=== PATIENT | male | born 1940 | race Caucasian/White ===

== ENCOUNTER 2017-01-29 18:35 | Emergency (ER) | payer OTHER ==
[2017-01-29 18:26] LABS: URINE SOURCE CLEAN CATCH
[~2017-01-29 18:35] MED LIST: ACETAMINOPHEN325 MG PO; ALTACE PO; ASPIRIN PO; FLAGYL PO; FLOMAX0.4 MG PO; HYDROCODON-ACE1 EAC7 PO; LEVAQUIN PO; LIPITOR PO; LORTAB 7.5-5001 TAB PO; MACRODANTIN PO; PRAVASTATIN PO; PREVACID PO; XARELTO15 MG PO
[2017-01-29 18:46] LABS: URINE APPEARANCE CLOUDY; URINE COLOR RED; URINE LEUKOCYTE ESTERASE 1+ (NEG); URINE NITRATE POS (NEG); URINE PROTEIN 2+ (NEG); URINE SPECIFIC GRAVITY 1.005 (1.003-1.035)
[2017-01-29 18:47] LABS: MICRO INDICATED? YES; URINE BILIRUBIN NEG (NEG); URINE BLOOD 3+ (NEG); URINE GLUCOSE NEG (NORM); URINE KETONE 1+ (NEG); URINE UROBILINOGEN NORM (NORM)
[2017-01-29 18:50] LABS: CULTURE INDICATED? YES; URINE BACTERIA 1+ (NEG); URINE MUCUS PRESENT; URINE RBC 200-300 /[HPF] (0-2); URINE SQUAMOUS EPITHELIAL CELL FEW /[HPF]
[2017-01-29 19:39] LABS: BASOPHIL% 0.5 % (0-2.5); DIFF IND NO; EOSINOPHIL# 0.1 X10e3 (0-0.7); EOSINOPHIL% 2.6 % (0.0-7.0); HEMATOCRIT 46.7 % (38.0-50.0); HEMOGLOBIN 15.8 gm/dL (13.0-16.0); LYMPHOCYTE# 1.4 X10e3 (1.0-3.5); LYMPHOCYTE% 29.4 % (17.0-45.0); MEAN CELL VOLUME 92.6 FL (83-96); MEAN CORPUSCULAR HEMOGLOBIN 31.4 PG (28-34); MEAN CORPUSCULAR HGB CONC 33.9 g/dL (30-36); MEAN PLATELET VOLUME 7.6 FL (6.5-11.5); MONOCYTE# 0.5 X10e3 (0-1.0); NEUTROPHIL# 2.8 X10e3 (1.5-7.1); NEUTROPHIL% 56.5 % (40-75); PLATELET COUNT 166 X10e3 (140-420); RED BLOOD COUNT 5.04 X10e (3.90-5.60); RED CELL DISTRIBUTION WIDTH 13.6 % (11.0-15.5); WHITE BLOOD COUNT 4.9 X10e3 (4.0-10.5)
[2017-01-29 19:51] LABS: BUN/CREATININE RATIO 23.33; CREATININE SERUM 0.9 mg/dL (0.6-1.4); GLOM FILT RATE Estimated 83.3 mL/min (>60); POTASSIUM 3.9 mmol/L (3.5-5.1)
== END 2017-01-29 20:40 | disposition home or self-care (01) ==
LOC: SED 18:35
PROVIDERS: Physician Assistant Medical
DX: N30.91 Cystitis, unspecified with hematuria (principal); N41.0 Acute prostatitis; I25.2 Old myocardial infarction; Z86.711 Personal history of pulmonary embolism; Z88.8 Allergy status to other drugs, medicaments and biological substances; Z79.899 Other long term (current) drug therapy
CPT/HCPCS: 36415; 80048; 81003; 85025; 87086; 99283